=== PATIENT | male | born 1980 | race Caucasian/White ===

== ENCOUNTER 2022-04-01 18:14 | Emergency (ER) | payer OTHER ==
[~2022-04-01] VITALS: Ht 175.3 cm; Wt 95.3 kg
--- NOTE | 2022-04-01 18:54 | ED Abdominal Pain ---
General Chief Complaint: Abdominal/GI Problems Stated Complaint: POSITIVE FOR COVID YESTERDAY, PAIN IN CHEST Source of Information: Patient Exam Limitations: No Limitations History of Present Illness Date Seen by Provider: April 01, 2022 Time Seen by Provider: 18:50 Initial Comments Patient is a 41-year-old male presents ED with upper abdominal pain. Described as a tight grinding pain since yesterday. Appears to be intermittent but worse today. Reports radiating to bilateral upper and lower abdomen. Patient states pain started yesterday. States he started feeling sick on Tuesday with chills body aches high fever as high as 105. Took large dose of ibuprofen and Tylenol with improvement of fever. Went to urgent care yesterday was given promethazine,, paxlovid for covid, hyoscyamine. Patient states symptoms became worse today. Patient went to his PCP today who recommended to come to ED for further evaluation. History of appendectomy. Patient denies of any nausea or vomiting. Few episodes of diarrhea without blood or mucus. Very minimal cough without chest pain, history of coronary artery disease, COPD or asthma. Denies of any specific trauma to the abdomen Allergies and Home Medications Allergies Coded Allergies: No Known Allergies (Unverified Allergy, Mild, 01/25/06) Patient Home Medication List Home Medication List Reviewed: Yes Hydrocodone/Acetaminophen (Hydrocodone-Acetamin 5-325 mg) 5 Mg-325 Mg Tablet, 1 TAB PO Q4H PRN for PAIN-MODERATE (5-7) Prescribed by: MELI MADRIGAL on 04/01/222132 Review of Systems Review of Systems Constitutional: chills, fever, malaise EENTM: No Double Vision Respiratory: Denies Cough, Denies Orthopnea Cardiovascular: Denies Chest Pain Gastrointestinal: Abdominal Pain, Diarrhea, Nausea; Denies Vomiting Genitourinary: Denies Burning Musculoskeletal: No back pain, No joint pain All Other Systems Reviewed Negative Unless Noted: Yes Physical Exam Vital Signs Vital Signs - First Documented 04/01/22 18:49 Temp 37.0 Pulse 64 Resp 18 B/P (MAP) 142/90 (107) Pulse Ox 97 O2 Delivery Room Air Capillary Refill : Height/Weight/BMI Height: '" Weight: lbs. oz. kg; BMI Method: General Appearance: WD/WN, no apparent distress HEENT: PERRL/EOMI, normal ENT inspection, TMs normal, pharynx normal Neck: non-tender, full range of motion Respiratory: chest non-tender, lungs clear, normal breath sounds, no respiratory distress Cardiovascular: regular rate, rhythm, no edema, no gallop, no JVD Gastrointestinal: normal bowel sounds, no organomegaly, no pulsatile mass, tenderness (Mid upper abdominal tenderness. Normal bowel sounds throughout. No rebound or guarding) Extremities: normal range of motion, non-tender, normal inspection Back: normal inspection, no CVA tenderness Pelvic: No normal external exam, No normal adnexa, No no cerv. 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, no motor/sensory deficits, alert, normal mood/affect Skin: normal color, warm/dry Progress/Results/Core Measures Results/Orders Lab Results Laboratory Tests Test 04/01/22 18:44 Range/Units White Blood Count 5.4 4.3-11.0 10^3/uL Red Blood Count 5.73 H 4.30-5.52 10^6/uL Hemoglobin 17.4 13.3-17.7 g/dL Hematocrit 50 40-54 % Mean Corpuscular Volume 88 80-99 fL Mean Corpuscular Hemoglobin 30 25-34 pg Mean Corpuscular Hemoglobin Concent 35 32-36 g/dL Red Cell Distribution Width 11.9 10.0-14.5 % Platelet Count 268 130-400 10^3/uL Mean Platelet Volume 9.5 9.0-12.2 fL Immature Granulocyte % (Auto) 0 % Neutrophils (%) (Auto) 36 L 42-75 % Lymphocytes (%) (Auto) 53 H 12-44 % Monocytes (%) (Auto) 9 0-12 % Eosinophils (%) (Auto) 1 0-10 % Basophils (%) (Auto) 0 0-10 % Neutrophils # (Auto) 1.9 1.8-7.8 10^3/uL Lymphocytes # (Auto) 2.9 1.0-4.0 10^3/uL Monocytes # (Auto) 0.5 0.0-1.0 10^3/uL Eosinophils # (Auto) 0.1 0.0-0.3 10^3/uL Basophils # (Auto) 0.0 0.0-0.1 10^3/uL Immature Granulocyte # (Auto) 0.0 0.0-0.1 10^3/uL Sodium Level 141 135-145 MMOL/L Potassium Level 4.3 3.6-5.0 MMOL/L Chloride Level 105 98-107 MMOL/L Carbon Dioxide Level 23 21-32 MMOL/L Anion Gap 13 5-14 MMOL/L Blood Urea Nitrogen 10 7-18 MG/DL Creatinine 1.07 0.60-1.30 MG/DL Estimat Glomerular Filtration Rate 91 BUN/Creatinine Ratio 9 Glucose Level 89 70-105 MG/DL Calcium Level 9.2 8.5-10.1 MG/DL Corrected Calcium 9.0 8.5-10.1 MG/DL Total Bilirubin 0.4 0.1-1.0 MG/DL Aspartate Amino Transf (AST/SGOT) 18 5-34 U/L Alanine Aminotransferase (ALT/SGPT) 19 0-55 U/L Alkaline Phosphatase 49 40-136 U/L Troponin I < 0.028 <0.028 NG/ML B-Type Natriuretic Peptide < 10.0 <100.0 PG/ML Total Protein 7.0 6.4-8.2 GM/DL Albumin 4.3 3.2-4.5 GM/DL Lipase 49 8-78 U/L My Orders Orders - MAU ASHTON PA Cbc With Automated Diff (04/01/22 18:47) Comprehensive Metabolic Panel (04/01/22 18:47) Lipase (04/01/22 18:47) Troponin I Ron[place] (04/01/22 18:47) Bnp Door (04/01/22 18:47) Chest 1 View, Ap/Pa Only (04/01/22 18:47) Ct Abdomen/Pelvis W (04/01/22 18:47) Ketorolac Injection (Toradol Injection) (04/01/22 19:00) Morphine Injection (Morphine Injection (04/01/22 19:00) Iohexol Injection (Omnipaque 350 Mg/Ml 1 (04/01/22 19:30) Ns (Ivpb) (Sodium Chloride 0.9% Ivpb Bag (04/01/22 19:30) Medications Given in ED Vital Signs/I&O 04/01/22 04/01/22 18:49 21:34 Temp 37.0 37.0 Pulse 64 64 Resp 18 18 B/P (MAP) 142/90 (107) 123/82 Pulse Ox 97 98 O2 Delivery Room Air Room Air Departure Communication (PCP) Patient tested positive for COVID yesterday. Mid upper abdominal discomfort. No chest pain or shortness of breath. Refused EKG. Cardiac work-up unremarkable. Chest x-ray negative for pneumonia. Does have mid upper abdominal tenderness. Denies excessive NSAID or alcohol use. CT abdomen pelvis concerning for distal gastritis. No history of ulcers, cancer. No dark or bloody stool. Pain controlled with pain medicine here. Patient was started on a PPI. Recommend taking this. Does have nausea medication. Avoid fatty foods, salty foods, alcohol, NSAIDs. Recommend outpatient surgery follow-up if pain progresses for potential upper EGD rule out any infectious etiology. If worsening symptoms return back to ED for further evaluation. Continue with your paxloid. Quarantine at home Impression Primary Impression: Abdominal pain Disposition: HOME, SELF-CARE Condition: Stable Departure-Patient Inst. Decision time for Depature: 21:21 Referrals: ALEX PAULSON MD (PCP) Primary Care Physician CHAN LASSITER DO Patient Instructions: Gastritis (DC) Scripts Hydrocodone/Acetaminophen (Hydrocodone-Acetamin 5-325 mg) 5 Mg-325 Mg Tablet 1 TAB PO Q4H PRN for PAIN-MODERATE (5-7), #8 TAB Prov: MAU ASHTON 04/01/22 Work/School Note: Work Release Form Date Seen in the Emergency Department: April 01, 2022 Return to Work: April 04, 2022 MAU ASHTON April 01, 2022 18:54
[2022-04-01 18:57] LABS: BASOPHILS % (AUTO) 0 % (0-10); EOSINOPHILS # (AUTO) 0.1 10^3/uL (0.0-0.3); EOSINOPHILS % (AUTO) 1 % (0-10); HEMATOCRIT 50 % (40-54); HEMOGLOBIN 17.4 g/dL (13.3-17.7); LYMPHOCYTES # (AUTO) 2.9 10^3/uL (1.0-4.0); LYMPHOCYTES % (AUTO) 53 % (12-44); MEAN CORPUSCULAR HEMOGLOBIN 30 pg (25-34); MEAN CORPUSCULAR HGB CONC 35 g/dL (32-36); MEAN CORPUSCULAR VOLUME 88 fL (80-99); MEAN PLATELET VOLUME 9.5 fL (9.0-12.2); MONOCYTES # (AUTO) 0.5 10^3/uL (0.0-1.0); MONOCYTES % (AUTO) 9 % (0-12); NEUTROPHILS # (AUTO) 1.9 10^3/uL (1.8-7.8); NEUTROPHILS % (AUTO) 36 % (42-75); PLATELET COUNT 268 10^3/uL (130-400); WHITE BLOOD COUNT 5.4 10^3/uL (4.3-11.0)
[2022-04-01] MEDS ORDERED: KETOROLAC 30 MG/ML VIAL IVP ONE (19:00)
[2022-04-01] MEDS ORDERED: morphine INJ 10 MG/ML 1ML (SYR OR VIAL) IVP ONE (19:00)
[2022-04-01 19:02] LABS: ALBUMIN 4.3 GM/DL (3.2-4.5)
[2022-04-01 19:03] LABS: CHLORIDE 105 MMOL/L (98-107); POTASSIUM 4.3 MMOL/L (3.6-5.0); SODIUM 141 MMOL/L (135-145)
[2022-04-01 19:04] LABS: CALCIUM 9.2 MG/DL (8.5-10.1)
[2022-04-01 19:05] LABS: GLUCOSE 89 MG/DL (70-105)
[2022-04-01 19:06] LABS: CARBON DIOXIDE 23 MMOL/L (21-32)
[2022-04-01 19:07] LABS: BILIRUBIN,TOTAL 0.4 MG/DL (0.1-1.0)
[2022-04-01 19:08] LABS: ALKALINE PHOSPHATASE 49 U/L (40-136)
[2022-04-01 19:09] LABS: CREATININE SERUM 1.07 MG/DL (0.60-1.30); GFR ESTIMATED 91
[2022-04-01 19:10] LABS: BUN/CREATININE RATIO 9
[2022-04-01 19:11] LABS: ALANINE AMINOTRANSFERASE 19 U/L (0-55)
[2022-04-01 19:12] LABS: LIPASE 49 U/L (8-78)
[2022-04-01] MEDS ORDERED: IOHEXOL 350 MG/ML 100 ML (OMNIPAQUE 350) VIAL IV ONE (19:30)
[2022-04-01] MEDS ORDERED: NS 100 ML (IVPB) BAG IV ONE (19:30)
--- NOTE | 2022-04-01 21:02 | Diagnostic Imaging Report ---
EXAMINATION: Chest 1 view. HISTORY: Cough. COMPARISON: None available. FINDINGS: The lung volumes are normal. No focal consolidation is seen. No large pleural effusion or pneumothorax is seen. The cardiomediastinal silhouette is normal in size and contour. No acute osseous abnormality is seen. IMPRESSION: No acute pleuroparenchymal process. Dictated by: Dictated on workstation # [id number]
--- NOTE | 2022-04-01 21:03 | Diagnostic Imaging Report ---
EXAMINATION: CT abdomen and pelvis with intravenous contrast. TECHNIQUE: Multiple contiguous axial images were obtained through the abdomen and pelvis after the uneventful administration of intravenous contrast. All CT scans use one or more of the following dose optimizing techniques: automated exposure control, MA and/or KvP adjustment based on patient size and exam type or iterative reconstruction. HISTORY: Abdominal pain. COMPARISON: None available. FINDINGS: The heart is unremarkable. The included lung bases are clear. The liver, spleen, pancreas, adrenal glands and kidneys have a normal appearance. The gallbladder is unremarkable. There is no pathologically enlarged mesenteric or retroperitoneal adenopathy. There is wall thickening in the distal stomach. No penetrating ulcer is identified. The bowel loops are nondilated. The appendix is surgically absent. There is no free fluid or free air. No acute osseous abnormalities. Ureters and bladder are grossly normal. There is no free air, loculated collection or adenopathy in the pelvis. IMPRESSION: Wall thickening in the distal stomach, suggestive of gastritis. No evidence of penetrating ulcer. Dictated by: Dictated on workstation # [id number]
[2022-04-01] MEDS ORDERED: ACHD5005 PO (21:33)
[2022-04-01 21:34] VITALS: BP 123/82
== END 2022-04-01 21:34 | disposition home or self-care (01) ==
LOC: EDUNIT# 18:14 → ER 18:19
DX: R10.10 Upper abdominal pain, unspecified (principal); U07.1 COVID-19; Z73.0 Burn-out
CPT/HCPCS: 36415; 71045; 74177; 80053; 83690; 83880; 84484; 85025